=== PATIENT | female | born 1995 | race Caucasian/White ===

== ENCOUNTER → 2020-11-04 | Outpatient (CLI) | payer BC, OTHER ==
[~2020-11-04] MED LIST: COLACE 100MG C100 MG PO; HYDROCODON-ACE1 EAC4 PO; IBU600 MG PO; LEVOTHYROXINE125 MCG PO; PRENATAL VITAM1 EAC3 PO; SYNTHROID75 MCG PO
[2020-11-04 15:06] LABS: HEMOGLOBIN 13.1 gm/dl (12.3-15.3); RED BLOOD COUNT 4.24 M/UL (4.00-5.10); WHITE BLOOD COUNT 12.7 K/UL (4.5-11.0)
== END ==
LOC: GENOP 14:10
PROVIDERS: Obstetrics & Gynecology
DX: Z01.812 Encounter for preprocedural laboratory examination (principal); Z20.822 Contact with and (suspected) exposure to COVID-19
CPT/HCPCS: 36415; 81001; 85025; U0002

== ENCOUNTER 2020-11-05 05:36 | Inpatient (IN) | payer BC, OTHER ==
[~2020-11-05] VITALS: Ht 165.1 cm; Wt 93.0 kg
[~2020-11-05 05:36] MED LIST changes: -COLACE 100MG C100 MG PO; -HYDROCODON-ACE1 EAC4 PO; -IBU600 MG PO; -LEVOTHYROXINE125 MCG PO
[2020-11-05] MEDS ORDERED: LEVOTHYROXINE125 MCG PO (06:10)
[2020-11-05] MEDS ORDERED: COLACE 100MG C100 MG PO (08:00)
[2020-11-05] MEDS ORDERED: HYDROCODON-ACE1 EAC4 PO (08:00)
[2020-11-05] MEDS ORDERED: IBU600 MG PO (08:00)
[2020-11-06 06:05] LABS: HEMOGLOBIN 11.2 gm/dl (12.3-15.3)
== END 2020-11-06 15:08 | disposition home or self-care (01) | DRG 788 ==
LOC: OB 05:36
PROVIDERS: ADMIT Obstetrics & Gynecology
PROC: 10D00Z1 Extraction of Products of Conception, Low, Open Approach (ICD-10-PCS; principal; 2020-11-05 08:00)
DX: O34.211 Maternal care for low transverse scar from previous cesarean delivery (principal); O99.284 Endocrine, nutritional and metabolic diseases complicating childbirth; E03.9 Hypothyroidism, unspecified; Z3A.39 39 weeks gestation of pregnancy; Z37.0 Single live birth
CPT/HCPCS: 36415; 81001; 82800; 85014; 85018; 85025; C9113; J0690; J1100; J1200; J1885; J2274; J2405; J2590; J3010; J7120; U0002